=== PATIENT | male | born 2000 | race Caucasian/White ===

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

== ENCOUNTER 2023-05-25 07:55 | Outpatient (CLI) | payer BC ==
[~2023-05-25] VITALS: Ht 185.4 cm; Wt 74.2 kg
[~2023-05-25 07:55] MED LIST: ALLEGRA ALLERGY60 MG PO; B-121000 MCG PO; INFLECTRA100 MG IV; LIALDA 1.2 GM1.2 GM PO; PROBIOTIC FORMU1 CAP PO; REMICADE V100 MG/VIA IV; VITAMIN D31000 IU PO; ZYRTEC 10MG10 MG PO
[2023-05-25 08:40] LABS: BASO % 0.7 % (0.0-2.0); EOS # 0.4 K/mm3 (0.0-0.7); GRAN # 2.5 K/mm3 (1.4-6.5); GRAN % 46.4 % (42.2-75.2); HEMATOCRIT 44.1 % (42.0-52.0); LYMPH % 36.7 % (20.0-51.0); MEAN CELL VOLUME 88 fl (80.0-100.0); MEAN CORPUSCULAR HEMOGLOBIN 30 pg (27-31); MEAN CORPUSCULAR HGB CONC 34 g/dl (33.0-37.0); MEAN PLATELET VOLUME 10.6 fl (7.4-10.4); MONO # 0.4 K/mm3 (0.1-0.6); PLATELET COUNT 173 K/mm3 (130-400); RED BLOOD COUNT 5.01 M/mm3 (4.20-5.60); REDCELL DISTRIBUTION WIDTH-CV 12.4 % (11.5-14.5)
[2023-05-25 08:56] LABS: ALBUMIN 4.2 gm/dL (3.5-5.0); CALCIUM 9.4 mg/dL (8.4-10.2); CREATININE, serum 1.02 mg/dL (0.72-1.25); TOTAL PROTEIN 6.9 gm/dL (6.2-8.1)
[2023-05-25 10:00] VITALS: BP 113/77; PULSE 74; TEMP 98.3
[2023-05-25 10:30] VITALS: BP 121/79; PULSE 59
[2023-05-25 10:59] VITALS: BP 109/73; PULSE 65
[2023-05-25 11:30] VITALS: BP 117/80; PULSE 62
[2023-05-25 12:00] VITALS: BP 116/73; PULSE 62
== END 2023-05-25 12:08 ==
LOC: EUO 07:55
PROVIDERS: Internal Medicine Gastroenterology
DX: Z51.81 Encounter for therapeutic drug level monitoring (principal)
CPT/HCPCS: J7040; Q5103

== ENCOUNTER 2023-08-17 13:47 | Outpatient (CLI) | payer BC ==
[~2023-08-17] VITALS: Ht 185.4 cm; Wt 76.2 kg
[2023-08-17 14:19] LABS: BASO % 0.5 % (0.0-2.0); EOS # 0.2 K/mm3 (0.0-0.7); EOS % 3.2 % (0.0-4.0); GRAN # 3.4 K/mm3 (1.4-6.5); GRAN % 55.1 % (42.2-75.2); HEMATOCRIT 44.5 % (42.0-52.0); HEMOGLOBIN 15.7 g/dl (13.5-18.0); LYMPH # 2.1 K/mm3 (1.2-3.4); LYMPH % 34.6 % (20.0-51.0); MEAN CELL VOLUME 87 fl (80.0-100.0); MEAN CORPUSCULAR HEMOGLOBIN 31 pg (27-31); MEAN CORPUSCULAR HGB CONC 35 g/dl (33.0-37.0); MEAN PLATELET VOLUME 10.7 fl (7.4-10.4); MONO # 0.4 K/mm3 (0.1-0.6); MONO % 6.3 % (1.7-9.3); PLATELET COUNT 161 K/mm3 (130-400); RED BLOOD COUNT 5.14 M/mm3 (4.20-5.60); REDCELL DISTRIBUTION WIDTH-CV 11.8 % (11.5-14.5)
[2023-08-17 14:26] VITALS: BP 111/68; PULSE 69; TEMP 98.2
[2023-08-17 14:34] LABS: ALBUMIN 4.3 gm/dL (3.5-5.0); BILIRUBIN,TOTAL 1.3 mg/dL (0.2-1.2); CALCIUM 9.7 mg/dL (8.4-10.2); CREATININE, serum 1.11 mg/dL (0.72-1.25); POTASSIUM 3.9 mmol/L (3.5-4.5); TOTAL PROTEIN 7.1 gm/dL (6.2-8.1)
[2023-08-17] MEDS ORDERED: Acetaminophen 500 MG TAB PO ONE (14:45)
[2023-08-17] MEDS ORDERED: methylPREDNISolone Sod Succ 125 MG/2 ML VIAL IV ONE (14:45)
[2023-08-17] MEDS ORDERED: INFLIXIMAB DYYB IV ONE (15:15)
[2023-08-17] MEDS ORDERED: NS IV ONE (15:15)
[2023-08-17 16:00] VITALS: BP 116/72; PULSE 68
[2023-08-17 16:30] VITALS: BP 118/80; PULSE 67
[2023-08-17 17:00] VITALS: BP 115/72; PULSE 68
[2023-08-17 17:30] VITALS: BP 110/80; PULSE 70
== END 2023-08-17 17:43 | disposition home or self-care (01) ==
LOC: EUO 13:47
PROVIDERS: Internal Medicine Gastroenterology
DX: K50.119 Crohn's disease of large intestine with unspecified complications (principal)
CPT/HCPCS: J7050; Q5103